=== PATIENT | male | born 1930 | race Caucasian/White ===

== ENCOUNTER 2018-06-09 08:50 | Emergency (ER) | payer MEDICARE, OTHER ==
[~2018-06-09] VITALS: Ht 177.8 cm; Wt 82.0 kg
[~2018-06-09 08:50] MED LIST: ACET-1600 PO; APIX2.5T PO; CYAN10005 PO; HYDR25TA6 PO; LEVO125T PO; LISI-170 PO; METO25TA35 PO; SIMV20TA3 PO; TERA2CAP3 PO
[2018-06-09] MEDS ORDERED: SODIUM CHLORIDE FLUSH 10ML SYR IVF ONE (09:30)
[2018-06-09] MEDS ORDERED: DIAZEPAM 5 MG TABLET PO ONE (10:00)
[2018-06-09 10:01] LABS: BASOPHILS # (AUTO) 0.01 x10^3/uL (0-0.1); BASOPHILS % (AUTO) 0 % (0-1); EOSINOPHILS % (AUTO) 0 % (1-7); LYMPHOCYTES # (AUTO) 0.61 x10^3/uL (1-3.4); LYMPHOCYTES % (AUTO) 5 % (22-44); MD NO; MEAN CORPUSCULAR HEMOGLOBIN 28.2 pg (27.5-34.5); MEAN CORPUSCULAR HGB CONC 32.9 g/dL (33.2-36.2); MEAN CORPUSCULAR VOLUME 85.8 fL (81-97); MEAN PLATELET VOLUME 6.8 fL (7.4-10.4); MONOCYTES # (AUTO) 1.01 x10^3/uL (0.2-0.8); MONOCYTES % (AUTO) 9 % (2-9); NEUTROPHILS # (AUTO) 9.78 x10^3/uL (1.8-6.8); NEUTROPHILS % (AUTO) 86 % (42-75); PLATELET COUNT 344 x10^3/uL (130-400); RED BLOOD COUNT 3.58 x10^6/uL (4.38-5.82); RED CELL DISTRIBUTION WIDTH 14.8 % (9.4-14.8)
[2018-06-09] MEDS ORDERED: DIAZEPAM 5 MG TABLET ONE (10:10)
[2018-06-09 10:15] LABS: ALANINE AMINOTRANSFERASE 22 U/L (12-78); ALBUMIN 2.6 g/dL (3.4-5.0); ANION GAP 8 mmol/L (5-15); CALCIUM 8.5 mg/dL (8.5-10.1); CHLORIDE 106 mmol/L (98-107); CREATININE 1.75 mg/dL (0.7-1.3)
[2018-06-09 10:16] LABS: TROPONIN I < 0.015 ng/mL (0.000-0.045)
[2018-06-09 10:18] LABS: ALKALINE PHOSPHATASE 94 U/L (45-117); BILIRUBIN,TOTAL 0.4 mg/dL (0.2-1.0); TOTAL PROTEIN 7.4 g/dL (6.4-8.2)
[2018-06-09] MEDS ORDERED: LIDODERM 5% PATCH TD ONE (11:30)
[2018-06-09 12:22] VITALS: BP 119/57
[2018-06-09] MEDS ORDERED: HYDROcodone/APAP 5/325 TABLET ONE (12:36)
[2018-06-09] MEDS ORDERED: HYDROcodone/APAP 5/325 TABLET PO ONE (13:00)
== END 2018-06-09 12:53 | disposition home or self-care (01) ==
LOC: ED 09:30
DX: S29.012A Strain of muscle and tendon of back wall of thorax, initial encounter (principal); M41.24 Other idiopathic scoliosis, thoracic region; I10 Essential (primary) hypertension; E03.9 Hypothyroidism, unspecified; E78.00 Pure hypercholesterolemia, unspecified; Z87.438 Personal history of other diseases of male genital organs; Z87.891 Personal history of nicotine dependence; X58.XXXA Exposure to other specified factors, initial encounter; Y93.89 Activity, other specified; Y92.89 Other specified places as the place of occurrence of the external cause; Y99.8 Other external cause status
CPT/HCPCS: 36415; 71045; 72128; 80053; 84484; 85025; 93005; 99285

== ENCOUNTER 2018-12-03 16:58 | Emergency (ER) | payer MEDICARE, OTHER ==
[~2018-12-03] VITALS: Ht 185.4 cm; Wt 90.0 kg
[2018-12-03] MEDS ORDERED: HYDROcodone/APAP 5/325 TABLET ONE ×2 (17:18→20:16)
[2018-12-03] MEDS ORDERED: HYDROcodone/APAP 5/325 TABLET PO ONE ×2 (17:30→20:09)
--- NOTE | 2018-12-03 17:30 | NUR ---
to rm 19. C/O LEFT KNEE PAIN DEVELOPING LAST FEW DAYS BUT BECOMING UNBEARABLE THE LAST FEW HOURS. WARM TO TOUCH, NO ERYTHEMA OR SWELLING NOTED. MD EVALUATING PT
[2018-12-03 17:53] LABS: BASOPHILS # (AUTO) 0.04 x10^3/uL (0-0.1); BASOPHILS % (AUTO) 1 % (0-1); EOSINOPHILS % (AUTO) 0 % (1-7); LYMPHOCYTES # (AUTO) 0.83 x10^3/uL (1-3.4); LYMPHOCYTES % (AUTO) 11 % (22-44); MD NO; MEAN CORPUSCULAR HEMOGLOBIN 25.9 pg (27.5-34.5); MEAN CORPUSCULAR HGB CONC 32.3 g/dL (33.2-36.2); MEAN CORPUSCULAR VOLUME 80.1 fL (81-97); MEAN PLATELET VOLUME 7.3 fL (7.4-10.4); MONOCYTES # (AUTO) 0.59 x10^3/uL (0.2-0.8); MONOCYTES % (AUTO) 8 % (2-9); NEUTROPHILS # (AUTO) 5.76 x10^3/uL (1.8-6.8); NEUTROPHILS % (AUTO) 80 % (42-75); PLATELET COUNT 272 x10^3/uL (130-400); RED BLOOD COUNT 4.15 x10^6/uL (4.38-5.82); RED CELL DISTRIBUTION WIDTH 16.6 % (9.4-14.8)
[2018-12-03 17:54] LABS: HCT (SEDRATE) 33.1 % (39.2-51.8)
[2018-12-03 18:01] LABS: ALBUMIN 3.3 g/dL (3.4-5.0); ANION GAP 8 mmol/L (5-15); CALCIUM 8.8 mg/dL (8.5-10.1); CHLORIDE 106 mmol/L (98-107); CREATININE 1.76 mg/dL (0.7-1.3)
--- NOTE | 2018-12-03 18:58 | NUR ---
REPORT FROM VANCE ROCHA
[2018-12-03] MEDS ORDERED: LIDOCAINE 1%-EPI 1:100K, 20ML ONE (19:01)
--- NOTE | 2018-12-03 19:04 | NUR ---
report given to Ramandeep ROCHA
--- NOTE | 2018-12-03 19:24 | NUR ---
PROVIDER TO BEDSIDE FOR ARTHROCENTESIS.
--- NOTE | 2018-12-03 19:53 | NUR ---
PROVIDER TO BEDSIDE FOR UPDATE.
[2018-12-03] MEDS ORDERED: INDOMETHACIN 50 MG CAPSULE ONE (20:11)
[2018-12-03 20:14] VITALS: BP 144/58
[2018-12-03] MEDS ORDERED: INDOMETHACIN 50 MG CAPSULE PO ONE (20:30)
== END 2018-12-03 20:28 | disposition home or self-care (01) ==
LOC: ED 17:26
DX: M10.062 Idiopathic gout, left knee (principal); I48.91 Unspecified atrial fibrillation; E78.00 Pure hypercholesterolemia, unspecified; E03.9 Hypothyroidism, unspecified; I10 Essential (primary) hypertension
CPT/HCPCS: 20610; 36415; 80048; 82040; 84550; 85025; 85651; 86140

== ENCOUNTER → 2020-05-09 | Outpatient (CLI) | payer MEDICARE, OTHER ==
[~2020-05-09] MED LIST changes: +CYAN-27 PO; -CYAN10005 PO; +SIMV20TA19 PO; -SIMV20TA3 PO
== END | disposition home or self-care (01) ==
LOC: EDSTATUS 04-29 11:00 → CVU 14:16
PROVIDERS: ATTEND Internal Medicine Cardiovascular Disease
DX: I08.0 Rheumatic disorders of both mitral and aortic valves (principal); I77.810 Thoracic aortic ectasia; I11.9 Hypertensive heart disease without heart failure; J44.9 Chronic obstructive pulmonary disease, unspecified; Z98.890 Other specified postprocedural states
CPT/HCPCS: 93306